=== PATIENT | female | born 1995 | race Caucasian/White ===

== ENCOUNTER 2019-08-09 10:04 | Outpatient (CLI) | payer OTHER, MEDICAID, SELFPAY ==
--- NOTE | 2019-08-09 10:11 | US_ITS ---
WS: [id number] ULTRASOUND OB COMPLETE TECHNIQUE: Complete ultrasound. CLINICAL INFORMATION: SUPERVISION OF NORMAL MULTIGRAVIDA PREGANCY, FIRST TRIMESTER COMPARISON: None. FINDINGS: Cervix measures 5.1 cm Single interuterine gestation is identified Placenta is posterior. Placenta grade 0. Placenta is low- lying with partial previa. Normal amniotic fluid volume. cardiac activity: 147 BPM. AGA: 20w1d JUAN by ultrasound: 12/26/2019 Estimated weight: 328 g. BDP: 4.7 cm = 20w1d HC: 17.9 cm = 20w3d AC: 14.7 cm = 20w0d FEMUR LENGTH: 3.2 cm = 20w0d Anatomic survey: Upper LIP not well visualized. Recommend interval follow-up for additional assessmen t. Anatomic survey is otherwise normal. Normal stomach. Kidneys and bladder are normal. Normal 3 vessel cord. Normal 3 vessel cord insertion. Normal 4 chamber heart. Normal spine. Intracranial contents are normal. Normal posterior fossa and cisterna magna. US/US OB >= 14 weeks fetus [id number] IMPRESSION: 1. Single intrauterine with visualized cardiac activity. AGA 20w1d w ith JUAN 12/26/2019. 2. Placenta is posterior. Low-lying placenta with Partial previa. Recommend th ird trimester follow-up. 3. Upper lip is not well visualized. Recommend interval follow-up and to 3 wee ne for additional assessment of upper lip and profile. Anatomic survey ot herwise normal. 4. Normal amniotic fluid volume.
== END 2019-08-09 10:05 | disposition home or self-care (01) ==
LOC: RAD 10:10
PROVIDERS: Visit Provider Family Medicine
DX: Z34.81 Encounter for supervision of other normal pregnancy, first trimester (principal); Z3A.20 20 weeks gestation of pregnancy
CPT/HCPCS: 76805

== ENCOUNTER 2019-09-19 10:52 | Outpatient (CLI) | payer OTHER, MEDICAID, SELFPAY ==
--- NOTE | 2019-09-19 10:56 | US_ITS ---
WS: [id number] ULTRASOUND OB LIMITED TECHNIQUE: Limited ultrasound examination of the fetus. CLINICAL INFORMATION: LOW LYING PLACENTA COMPARISON: None. FINDINGS: Single interuterine gestation. presentation is cephalic Placental location is posterior. Placenta grade: 0. heart rate 164 BPM. Anatomy: profile and upper lip appear normal today. Low-lying and partial previa appears resolved today. EGA by ultrasound: 26 weeks 1 day JUAN by ultrasound: December 25, 2019 US/US OB limited [id number] IMPRESSION: 1. profile and upper lip appear normal today 2. Low-lying placenta appears resolved today
== END 2019-09-19 10:53 | disposition home or self-care (01) ==
PROVIDERS: Visit Provider Family Medicine
DX: Z3A.26 26 weeks gestation of pregnancy; O44.42 Low lying placenta NOS or without hemorrhage, second trimester
CPT/HCPCS: 76815

== ENCOUNTER 2019-12-21 08:50 | Outpatient (CLI) | payer OTHER, MEDICAID, SELFPAY ==
[2019-12-21 09:12] VITALS: BP 125/76; PULSE 110
[2019-12-21 09:21] VITALS: RESP 16; TEMP 36.2
[2019-12-21 09:22] VITALS: BMI 35.7
[2019-12-21 09:42] VITALS: BP 116/70; PULSE 92
[2019-12-21 11:09] VITALS: BP 116/70; PULSE 92; RESP 16; TEMP 36.2
== END 2019-12-21 10:15 | disposition home or self-care (01) ==
LOC: OPOB 09:01 → OBGYN 10:06
PROVIDERS: Visit Provider Family Medicine
DX: O26.899 Other specified pregnancy related conditions, unspecified trimester (principal); Z3A.00 Weeks of gestation of pregnancy not specified; R10.9 Unspecified abdominal pain
CPT/HCPCS: 59025; 99211

== ENCOUNTER 2019-12-29 08:05 | Inpatient (IN) | payer OTHER, MEDICAID, SELFPAY ==
[2019-12-29] VITALS (95 sets, daily range): BP systolic 0–148; BP diastolic 0–88; PULSE 61–124; RESP 16–20; TEMP 36.6–36.9; O2SAT 80–100; BMI 35.9
[2019-12-29 08:21] LABS: Basophils # 0.1 10^3/uL (0.0-0.1); Basophils % 0.5 %; Eosinophils # 0.2 10^3/uL (0.0-0.8); Eosinophils % 1.3 %; Hematocrit 41.4 % (37.0-47.0); Hemoglobin 14.2 g/dL (11.5-15.3); Lymphocytes # 2.7 10^3/uL (0.8-4.8); Lymphocytes % 23.8 %; Mean Corpuscular HGB Conc 34.3 g/dL (30.0-36.0); Mean Corpuscular Hemoglobin 30.7 pg (28.0-34.0); Mean Corpuscular Volume 89.6 fL (81-99); Mean Platelet Volume 11.4 fL (7.4-10.4); Monocytes # 0.8 10^3/uL (0.2-0.9); Monocytes % 6.6 %; Neutrophils # 7.62 10^3/uL (1.8-7.7); Neutrophils % 67.4 %; Nucleated Red Blood Cells % 0 %; Platelet Count 171 10^3/cmm (130-400); Red Blood Count 4.62 10^6/uL (4.1-5.3); Red Cell Distribution Width 13.2 % (12.1-15.1); White Blood Count 11.3 10^3/uL (4.0-10.0)
[2019-12-29] MEDS: oxytocin 30 UNIT/500 ML BAG IV (16:41)
[2019-12-29] MEDS: dextrose 5%-lactated ringers 1,000 ML 125 ML IV (16:42)
[2019-12-29] MEDS: lactated ringers 1,000 ML 999 ML IV (20:54)
[2019-12-29] MEDS: lactated ringers 1,000 ML 125 ML IV (21:47)
--- NOTE | 2019-12-29 22:20 | P.ANESASSM_ITS ---
Pre-Anesthetic Assessment Pre-Anesthetic Assessment: Height/Weight: Height 1.6 m Weight 92.079 kg Temp Pulse Resp BP Pulse Ox 97.8 F 86 20 H 130/61 97 12/29/19 18:20 12/29/19 22:17 12/29/19 18:20 12/29/19 22:17 12/29/19 22:09 Preop Diagnosis: IUP Proposed Procedure: Lumbar Labor Epidural Was Beta Karen taken within 24 hours: N/A Exam: Pre-Anes Outpt Exam: alert, oriented x 3, clear to auscultation bilaterally and regular rate & rhythm History/ROS: No significant history except as noted and No significant complaints Pulmonary: Pulmonary: None reported CV/HEM: CV/HEM: None reported : : None reported Hepatic: Hepatic: None reported GI: GI: GERD Metabolic: Metabolic: None reported Musc/skel: Musc/skel: None reported Neuropsych: Neuropsych: None reported Anesthetic Plan: ASA status: 2 Anesthesia: Regional (specify below) (epidural) Meds/Allergies Current Medications: Current Medications Generic Name Dose Route Start Last Admin Trade Name Freq PRN Reason Stop Dose Admin Dextrose/Lactated Ringer's 1,000 mls @ 125 m ls/hr 12/29/19 08:15 12/29/19 20:52 Dextrose 5%-Lact ated Ringers IV 0 mls/hr .Q8H ALINA Infusion Oxytocin 30 unit in 500 ml s @ 1 mls/hr 12/29/19 15:45 12/29/19 20:30 Pitocin IV 15 milliunit/min .Q24H ALINA 15 mls/hr Titration Protocol 1 MILLIUNIT/MIN Lactated Ringer's 1,000 mls @ 999 m ls/hr 12/29/19 20:47 12/29/19 20:54 Lactated Ringers IV 999 mls/hr .Q1H1M PRN Administration See label comment s PFSH Anesthesia Female Reproductive History: Date of last menstrual period: 03/20/19 : 2 Data Anesthesia CBC & Chem 7: 12/29/19 07:50 Other Labs: Laboratory Results - last 48 hr 12/29/19 07:50 WBC 11.3 H RBC 4.62 Hgb 14.2 Hct 41.4 MCV 89.6 MCH 30.7 MCHC 34.3 RDW 13.2 Plt Count 171 MPV 11.4 H Neut % (Auto) 67.4 Lymph % (Auto) 23.8 [place] % (Auto) 6.6 Eos % (Auto) 1.3 Baso % (Auto) 0.5 Neut # (Auto) 7.62 Lymph # (Auto) 2.7 [place] # (Auto) 0.8 Eos # (Auto) 0.2 Baso # (Auto) 0.1 Nucleated RBC % (auto) 0 Nucleated RBCs # 0.0 Cardiac Studies: No Data to Display Anesthesia Procedures Epidural: Time Out Performed: Yes Consents Signed: Procedure Consent Consent: from patient, risks and benefits reviewed and patient agrees to proceed Lumbar Level: L3-L4 Epidural position: sitting Epidural procedure: sterile prep of area, 1% lidocaine to numb the area (5), 18 g needle, negative for paresthesia passed, neg for paresthesia, test dose given, 1.5% xylocaine 1:200k epi (5), 0.2% Ropivacaine bolus ml (5), placed PCEA (5cc q10min x 3), no systemic response, sterile dressing applied, L.U.D. no apparent complications and 0.2% Ropiavacaine @ mls/hr (12) Additional Comments: Called to OB for epidural placement, pt evaluated and assessed for placement and explained procedure. Labs reviewed. Pt agrees to proceed. placed to 5cm in space and bonny erated well. Bolused with epidural pump and VSS throughout per nursing chart. Last BP 117/60. Pain much improved.
[2019-12-30] VITALS (50 sets, daily range): BP systolic 0–136; BP diastolic 0–76; PULSE 68–122; RESP 16–18; TEMP 36.7–37; O2SAT 96–97
[2019-12-30] MEDS: alum-mag-hydroxide-sime 30 mL UDC PO (01:42)
[2019-12-30] MEDS: ondansetron 2 mg/ML SDV 2 mL 4 MG IVP (04:51)
--- NOTE | 2019-12-30 06:05 | P.PCNOB_ITS ---
Delivery Note: Date of delivery: December 30, 2019 Pre-Delivery Course: The patient began care at [facility]. She transferred to [facility] at approximately 32 weeks gestation. She was blood type AB+ antibody negative, GC chlamydia negative, HIV nonreactive, hepatitis B nonreactive, hep C nonreactive RPR nonreactive, glucose tolerance test 107, GBS negative, COVID screen negative. Delivery: This is a 24-year-old G2, P1 at 40 weeks 4 days gestation who was admitted for postdate induction. She was initially admitted in the fitter's assistant hours of 12/29/2019 but due to the busyness of the labor and delivery unit her induction was held off until late afternoon. She was started on Pitocin around 1700, her cervix was favorable. She received an epidural for pain management. She had spontaneous rupture membranes with clear fluid at approximately 0200. The infant had a deceleration into the 80s and 90s when she became complete but it recovered with positioning changes. She had a normal spontaneous vaginal delivery of a viable male infant weight [id number] , Apgars 4 and 9 over an intact perineum. The had initial cry and good tone and was suctioned at delivery and placed on the mother's chest. The then went apneic and was taken over to the warmer. Cord blood was obtained. Placenta was delivered grossly intact and normal to inspection. There were no lacerations. Mother was doing well after delivery. was receiving CPAP. A&P Assessment and plan (1) Post-term , 40-42 weeks of gestation: Status: Acute (2) Normal spontaneous vaginal delivery: Status: Acute Coding Level of Care Code Acute Industrial Gas Fitter Helper for Chg Fwd Diagnoses Post-term , 40-42 weeks of gestation O48.0 Normal spontaneous vaginal delivery O80
[2019-12-30] MEDS: docusate sodium 100 mg Capsule PO (09:56)
[2019-12-30] MEDS: ibuprofen 800 mg tablet PO (09:56)
[2019-12-30] MEDS: prenatal vitamin Capsule 1 CAP PO (09:56)
[2019-12-30 19:43] LABS: Hematocrit 33.1 % (37.0-47.0); Hemoglobin 11.1 g/dL (11.5-15.3); Mean Corpuscular HGB Conc 33.5 g/dL (30.0-36.0); Mean Corpuscular Hemoglobin 30.7 pg (28.0-34.0); Mean Corpuscular Volume 91.4 fL (81-99); Mean Platelet Volume 11.5 fL (7.4-10.4); Platelet Count 150 10^3/cmm (130-400); Red Blood Count 3.62 10^6/uL (4.1-5.3); Red Cell Distribution Width 13.2 % (12.1-15.1); White Blood Count 10.2 10^3/uL (4.0-10.0)
[2019-12-31 04:20] VITALS: BP 104/61; PULSE 89; RESP 14; TEMP 36.8; O2SAT 97
--- NOTE | 2019-12-31 07:55 | ANE.PACU2 ---
Inpatient post-anesthesia follow up: Airway intact: Yes Vital signs: Temperature 98.2 F Pulse Rate 89 Respiratory Rate 14 Blood Pressure 104/61 Pulse Oximetry 97 Oxygen Delivery Me thod Room Air Oxygen Flow Rate Fraction of Inspir ed Oxygen Hydration adequate: Yes Nausea and vomiting: No Pain level: 1 Mental status: Baseline Additional Comments: no headaches, no weakness/numbness in legs, urinating without grayson. NO signs of infection at epidural site
[2019-12-31 10:44] VITALS: BP 92/61; PULSE 71; RESP 16; TEMP 36.5
[2019-12-31 16:46] VITALS: BP 108/63; PULSE 78; RESP 18; TEMP 36.4
--- NOTE | 2019-12-31 17:30 | P.DS_ITS ---
Discharge Providers ENVIRONMENTAL WEB CRAWLER Date of Admission: 12/29/19 08:05 Date of Discharge: 12/31/19 Attending Provider at Admission: Treva Samuel MD Attending Provider at Discharge: Treva Samuel MD Diagnoses at Discharge Discharge Diagnosis (1) Post-term , 40-42 weeks of gestation: Status: Acute (2) Normal spontaneous vaginal delivery: Status: Acute Reason for Visit Reason for Visit: IOL Hospital Course Hospital Course: This is a 24-year-old G2 now P2 who was admitted for postdate induction. She had a normal spontaneous vaginal delivery of a viable male . Mother did well after delivery. She was ambulating, tolerating a regular diet, had decreased vaginal bleeding and was requesting discharge home Information Peripartum Data: Infant Delivery Method: Vaginal Physical Exam HENMT: COMMON NORMALS: normocephalic HEAD & SCALP: normocephalic Chest: COMMONS NORMALS: normal inspection of the chest Resp: COMMON NORMALS: normal respiratory effort, No use of accessory muscles and clear to auscultation bilaterally AUSCULTATION: clear to auscultation bilaterally Cardio: COMMON NORMALS: regular rate and regular rhythm RATE: regular rate RHYTHM: regular rhythm GI: COMMON NORMALS: Soft to palpation (Fundus firm U- 2); negative for No hepatosplenomegaly present PALPATION: Yes Soft to palpation (Fundus firm U- 2), No Tenderness to palpation present (GI), No Guarding due to palpation present (GI) and No No hepatosplenomegaly present Extremity: GENERAL: No calf tenderness and Yes edema Urinary Catheter Management^: Perez: Cath Placed During This Visit: yes Urinary Catheter Date of Insertion: 12/29/19 Urinary Catheter Time of Insertion: 22:54 Discharge Data Data Completed and Pending: Labs from last 24 hours 12/30/19 19:32 WBC 10.2 H RBC 3.62 L Hgb 11.1 L Hct 33.1 L MCV 91.4 MCH 30.7 MCHC 33.5 RDW 13.2 Plt Count 150 MPV 11.5 H Vitals: This is a 24-year-old G2 now P2Last Vital Signs Temp 97.6 F 12/31/19 16:46 Pulse 78 12/31/19 16:46 Resp 18 12/31/19 16:46 BP 108/63 12/31/19 16:46 Pulse Ox 97 12/31/19 04:20 Discharge Plan Discharge Patient Disposition: Home Condition: Stable Prescriptions: Continued RF: 0 Discharge Orders: Discharge Order (Routine); Ordered 12/31/19 Ordered By: Treva Samuel Referrals: Treva Samuel MD [Family Provider] - 1 month Discharge Diet: Usual diet Discharge Activity: Limit activity as instructed Patient Instructions: Bleeding (DC), OB Discharge Report, OB Food/Drug Interaction Guide, OB Home Care, OB Proud Parent Packet, OB Vaginal Deliveries Discharge Attestations ENVIRONMENTAL WEB CRAWLER Time Spent in Discharge Care*: less than 30 min Coding Level of Care Code Acute Product Safety And Standards Engineer for Chg Fwd Diagnoses Post-term , 40-42 weeks of gestation O48.0 Normal spontaneous vaginal delivery O80
[2019-12-31 21:05] VITALS: BP 105/65; PULSE 79; RESP 16; TEMP 36.9; O2SAT 96
[2020-01-01 04:09] VITALS: BP 105/65; PULSE 79; RESP 16; TEMP 36.9; O2SAT 96
== END 2019-12-31 21:10 | disposition home or self-care (01) | DRG 807 ==
LOC: OPOB 08:25 → OBGYN 08:25
PROVIDERS: Admitting Provider Family Medicine; Family Provider Family Medicine; Visit Provider Family Medicine
DX: O48.0 Post-term pregnancy (principal); Z37.0 Single live birth; Z3A.40 40 weeks gestation of pregnancy; Z87.891 Personal history of nicotine dependence; O76 Abnormality in fetal heart rate and rhythm complicating labor and delivery
CPT/HCPCS: 12345; 36415; 51702; 59025; 59409; 85025; 85027; 96374; 96375; 98960; 99211; J2405; J2795

== ENCOUNTER 2022-02-22 23:11 | Emergency (ER) | payer BC, MEDICAID, SELFPAY ==
[2022-02-22 23:27] VITALS: BP 131/77; PULSE 106; RESP 18; TEMP 36.8; O2SAT 100; BMI 33.6
--- NOTE | 2022-02-22 23:50 | USR_ITS ---
PROCEDURE INFORMATION: Exam: US Abdomen, Limited; Right Upper Quadrant Exam date and time: 02/23/2022 12:05 AM Age: 27 years old Clinical indication: Abdominal pain; Patient HX: Ruq pain n+v x 1 week TECHNIQUE: Imaging protocol: Real time ultrasound of the abdomen with image documentation. Limited exam focused on the right upper quadrant. COMPARISON: US OB limited [id number] 09/19/2019 10:55 AM FINDINGS: Liver: Normal. No masses. Gallbladder: Cholelithiasis and a positive Samaniego's sign, gallbladder wall is mildly prominent at 3.2 mm, findings may potentially reflect an early cholecystitis, nuclear medicine HIDA scan could further evaluate this. Biliary ducts: Normal. No stones. No dilation. Pancreas: Visualized pancreas is unremarkable. Right kidney: Normal. No mass. No hydronephrosis. US/US gall bladder [id number] IMPRESSION: Cholelithiasis and a positive Samaniego's sign, gallbladder wall is mildly prominent at 3.2 mm, findings may potentially reflect an early cholecystitis, nuclear medicine HIDA scan could further evaluate this.
--- NOTE | 2022-02-22 23:51 | ED_ITS ---
HPI - Abdominal Pain General: Chief Complaint: Abdominal Pain Stated Complaint: abdomen pain Time Seen by Provider: 02/22/22 23:36 Source: patient Mode of arrival: ambulatory Limitations: no limitations History of Present Illness: 27-year-old female who states she has been having intermittent abdominal pains for the last week states pains got much worse this evening states pain started at 7 is in her epigastric region and right upper quadrant. She denies any lower abdominal pain states pain is currently 7 out of 10 had some nausea vomiting with the pain no history of any abdominal surgeries she denies any fever denies any dysuria. Denies any radiation of the pain. Associated Symptoms: Reports nausea and vomiting; Denies chills, dysuria and fever(s) Related Data: Date of Last Menstrual Period: 02/13/22 Review of Systems Const: Denies: fever(s), chills, body aches or change in appetite Eyes: Denies: blurry vision or eye discomfort ENMT: Denies: throat pain or dental pain Card: Denies: chest pain Resp: Denies: dyspnea GI: Reports: abdominal pain, nausea and vomiting : Denies: dysuria Musc: Denies: neck pain or back pain Skin/Breast: Denies: rash Neuro: Denies: headache(s) Psych: Denies: depression [place]/Lymph: Denies: easy bruising All/Imm: Denies: urticaria PFSH ED PFSH: Medical History Allergic rhinitis due to allergen Former smoker Social History Smoking and tobacco status: current every day smoker Female Reproductive History: Date of last menstrual period: 02/13/22 Physical Exam Const: COMMON NORMALS: no acute distress, patient oriented x3 and healthy appearing HENMT: COMMON NORMALS: normocephalic and atraumatic HEAD & SCALP: normocephalic and atraumatic Eye: COMMON NORMALS: Equal, round and reactive pupils present and EOMs intact bilaterally PUPIL: Yes Equal, round and reactive pupils present Neck/C-Spine: COMMON NORMALS: full ROM and supple Chest: COMMONS NORMALS: normal inspection of the chest and normal palpation of entire chest wall Resp: COMMON NORMALS: normal respiratory effort, No retractions, No use of accessory muscles and clear to auscultation bilaterally AUSCULTATION: clear to auscultation bilaterally Cardio: COMMON NORMALS: regular rate, regular rhythm and No murmurs present (Cardio) RATE: regular rate RHYTHM: regular rhythm GI: COMMON NORMALS: Normal to inspection, nondistended, normoactive bowel sounds present, Soft to palpation, non-tender and no masses PALPATION: Yes Soft to palpation Extremity: COMMON NORMALS: normal to inspection and full ROM Neuro: COMMON NORMALS: patient oriented x3, moves all extremities and no focal motor deficits Psych: COMMON NORMALS: mental status grossly normal, Normal thought process present and cooperative THOUGHT PROCESS: Normal thought process present Skin: COMMON NORMALS: no rashes or lesions noted and no wounds GENERAL SKIN EXAM: no rashes or lesions noted Course Vital Signs: Vital signs: Vital Signs Temperature 98.2 F 02/22/22 23:27 Pulse Rate 85 02/23/22 01:11 Respiratory Rate 16 02/23/22 01:11 Blood Pressure 122/70 02/23/22 01:11 Pulse Oximetry 100 02/23/22 01:11 Oxygen Delivery Me thod 02/22/22 23:27 MDM - Abdominal Pain Medical Decision Making Patient presents with abdominal pain her ultrasound here did show gallstones with possible slight wall thickening her pain here is resolved her exam at [facility] is benign her white count is normal no signs of any severe infection I did offer admission for possible early cholecystitis she states she did not follow- up with surgeon outpatient we will get her follow-up started on antibiotics on pain meds for pain return she is return immediately she understands agrees to plan. Lab Data 02/22/22 23:50 02/22/22 23:50 Labs/Radiology: Radiology Impressions Gallbladder Ultrasound 02/22/22 23:50 IMPRESSION: Cholelithiasis and a positive Samaniego's sign, gallbladder wall is mildly prominent at 3.2 mm, findings may potentially reflect an early cholecystitis, nuclear medicine HIDA scan could further evaluate this. Laboratory Results WBC 9.4 10^3/uL (4.0-10.0) 02/22/22 23:50 RBC 4.77 10^6/uL (4.1-5.3) 02/22/22 23:50 Hgb 14.7 g/dL (11.5-15.3) 02/22/22 23:50 Hct 43.8 % (37.0-47.0) 02/22/22 23:50 MCV 91.8 fl (81-99) 02/22/22 23:50 MCH 30.8 pg (28.0-34.0) 02/22/22 23:50 MCHC 33.6 g/dL (30.0-36.0) 02/22/22 23:50 RDW 12.0 % (12.1-15.1) L 02/22/22 23:50 Plt Count 222 10^3/cmm (130-400) 02/22/22 23:50 MPV 10.4 fL (7.4-10.4) 02/22/22 23:50 Neut % (Auto) 41.6 % 02/22/22 23:50 Lymph % (Auto) 44.5 % 02/22/22 23:50 [place] % (Auto) 8.3 % 02/22/22 23:50 Eos % (Auto) 4.9 % 02/22/22 23:50 Baso % (Auto) 0.5 % 02/22/22 23:50 Neut # (Auto) 3.92 10^3/uL (1.8-7.7) 02/22/22 23:50 Lymph # (Auto) 4.2 10^3/uL (0.8-4.8) 02/22/22 23:50 [place] # (Auto) 0.8 10^3/uL (0.2-0.9) 02/22/22 23:50 Eos # (Auto) 0.5 10^3/uL (0.0-0.8) 02/22/22 23:50 Baso # (Auto) 0.1 10^3/uL (0.0-0.1) 02/22/22 23:50 Nucleated RBC % (auto) 0 % 02/22/22 23:50 Nucleated RBCs # 0.0 /100WBC 02/22/22 23:50 Sodium 139 mmol/L (136-145) 02/22/22 23:50 Potassium 4.1 mmol/L (3.5-5.1) 02/22/22 23:50 Chloride 104 mmol/L (98-107) 02/22/22 23:50 Carbon Dioxide 27 mmol/L (22-29) 02/22/22 23:50 Anion Gap 12.1 (5-19) 02/22/22 23:50 BUN 10 mg/dL (6-20) 02/22/22 23:50 Creatinine 0.7 mg/dL (0.5-0.9) 02/22/22 23:50 GFR Calculation 102.0 mL/min (90-130) 02/22/22 23:50 Glucose 111 mg/dL (65-115) 02/22/22 23:50 Calculated Osmolality 288 mOsm/kg (285-295) 02/22/22 23:50 Calcium 10.0 mg/dL (8.5-10.5) 02/22/22 23:50 Total Bilirubin 0.2 mg/dL (0.15-1.2) 02/22/22 23:50 AST 13 U/L (0-32) 02/22/22 23:50 ALT 13 U/L (0-33) 02/22/22 23:50 Alkaline Phosphatase 70 U/L (35-105) 02/22/22 23:50 Total Protein 7.3 g/dL (6.6-8.7) 02/22/22 23:50 Albumin 4.2 g/dL (3.5-5.2) 02/22/22 23:50 Globulin 3.1 g/dL (1.3-4.6) 02/22/22 23:50 Lipase 30 U/L (13-60) 02/22/22 23:50 HCG, Qual Negative (Negative) 02/22/22 23:50 Discharge Plan Discharge Patient Disposition: Home Clinical Impression: Abdominal pain, Cholelithiases Condition: Stable Prescriptions: New hydrocodone-acetaminophen 5-325 mg tablet 1 tab PO Q6H PRN (Reason: pain) Qty: 14 0RF ondansetron 4 mg tablet,disintegrating 4 mg PO Q6H PRN (Reason: nausea and vomiting) Qty: 14 0RF levofloxacin 750 mg tablet 750 mg PO DAILY 5 Days Qty: 5 0RF No Action escitalopram oxalate [Lexapro] 10 mg tablet 10 mg PO DAILY loratadine 10 mg tablet 10 mg PO DAILY PRN (Reason: allergy symptoms) Qty: 30 3RF fluticasone propionate 50 mcg/actuation spray,suspension 2 spray intranasal BID PRN (Reason: allergy symptoms) Qty: 16 3RF Rx Instructions: administer into each nostril diphenhydramine HCl 25 mg tablet 25 mg PO .hs PRN (Reason: allergy symptoms) Qty: 30 1RF Discharge Orders: Discharge ED (Routine); Ordered 02/23/22 Ordered By: Kayden Ibrahim Referrals: Treva Samuel MD [Primary Care Provider] - Sylvester Glover DO [Physician] - 1-3 days Discharge Diet: Advance as tolerated Discharge Activity: Resume usual activity Patient Instructions: Biliary Colic (ED), Gallstones (ED), Opioid Safety, Pain Management Coding Level of Care Code ED Director Of Graduate Admissions for Chg Fwd Exam Comprehensive
[2022-02-22 23:57] LABS: Basophils # 0.1 10^3/uL (0.0-0.1); Basophils % 0.5 %; Eosinophils # 0.5 10^3/uL (0.0-0.8); Eosinophils % 4.9 %; Hematocrit 43.8 % (37.0-47.0); Hemoglobin 14.7 g/dL (11.5-15.3); Lymphocytes # 4.2 10^3/uL (0.8-4.8); Lymphocytes % 44.5 %; Mean Corpuscular HGB Conc 33.6 g/dL (30.0-36.0); Mean Corpuscular Hemoglobin 30.8 pg (28.0-34.0); Mean Corpuscular Volume 91.8 fl (81-99); Mean Platelet Volume 10.4 fL (7.4-10.4); Monocytes # 0.8 10^3/uL (0.2-0.9); Monocytes % 8.3 %; Neutrophils # 3.92 10^3/uL (1.8-7.7); Neutrophils % 41.6 %; Nucleated Red Blood Cells % 0 %; Platelet Count 222 10^3/cmm (130-400); Red Blood Count 4.77 10^6/uL (4.1-5.3); White Blood Count 9.4 10^3/uL (4.0-10.0)
[2022-02-23 00:26] LABS: Alanine Aminotransferase 13 U/L (0-33); Albumin Level 4.2 g/dL (3.5-5.2); Alkaline Phosphatase 70 U/L (35-105); Anion Gap 12.1 (5-19); Aspartate Amino Transferase 13 U/L (0-32); Blood Urea Nitrogen 10 mg/dL (6-20); Carbon Dioxide 27 mmol/L (22-29); Chloride 104 mmol/L (98-107); Globulin 3.1 g/dL (1.3-4.6); Glucose 111 mg/dL (65-115); Lipase 30 U/L (13-60); Osmolality Calculated 288 mOsm/kg (285-295); Potassium 4.1 mmol/L (3.5-5.1); Sodium 139 mmol/L (136-145); Total Bilirubin 0.2 mg/dL (0.15-1.2); Total Protein 7.3 g/dL (6.6-8.7)
[2022-02-23 00:35] LABS: HCG, Serum Qual Negative (Negative)
[2022-02-23] MEDS: ondansetron 2 mg/ML SDV 2 mL 4 MG IVP (00:41)
[2022-02-23] MEDS: morphine 4 mg/mL SDV 1 mL IVP (00:41)
[2022-02-23] MEDS: sodium chloride 0.9% 1,000 ML 999 ML IV (00:41)
[2022-02-23 01:11] VITALS: BP 122/70; PULSE 85; RESP 16; O2SAT 100
[2022-02-23] MEDS: levoFLOXacin 750 mg Tablet PO (01:22)
--- NOTE | 2022-02-23 12:23 | DCPLANNER ---
Addendum entered by Michelle Leigh 03/25/22 10:08: Patient had a follow up appointment scheduled with general surgery - patient did attend appointment. Addendum entered by Michelle Leigh 02/24/22 12:03: Patient has a follow up appointment scheduled for Tuesday, March 15, 2022 at 4:[address] Glover at general surgery. Clinic will call patient with appointment information. Original Note: financial institution branch manager had message to schedule a follow up appointment for patient with general surgery. financial institution branch manager sent patients information to the front office staff at general surgery. Patients information will be printed and reviewed. Clinic will call patient with appointment information.
== END 2022-02-23 01:30 | disposition home or self-care (01) ==
PROVIDERS: Emergency Provider Emergency Medicine; PCP Family Medicine
DX: K80.20 Calculus of gallbladder without cholecystitis without obstruction (principal); F17.210 Nicotine dependence, cigarettes, uncomplicated
CPT/HCPCS: 76705; 80053; 83690; 84703; 85025; 96361; 96374; 96375; 99285; J2270; J2405; J7030

== ENCOUNTER 2022-03-07 09:31 | Day surgery (SDC) | payer BC, MEDICAID, SELFPAY ==
[2022-03-07] VITALS (22 sets, daily range): BP systolic 84–120; BP diastolic 48–73; PULSE 57–97; RESP 16–18; TEMP 36.3–37.6; O2SAT 93–100
--- NOTE | 2022-03-07 09:40 | W.PM.OPSUD ---
Surgery/Procedure H&P Update DATE OF PROCEDURE: March 07, 2022 DATE H&P PERFORMED: 03/01/22 PREOP DIAGNOSIS: Symptomatic Cholelithiasis PLANNED PROCEDURE: Operation Date: 03/07/22 11:05 Proposed Procedures [email or web address] sanders [id number] ,K80.20(Not Applicable) - Sylvester Glover DO
[2022-03-07 09:53] LABS: OR HCG Qualitative Urine Negative (Negative)
[2022-03-07] MEDS: ceFAZolin 2,000 MG in sodium chloride 0.9% (plus) 50 ML 100 MG IV (10:04)
[2022-03-07] MEDS: sodium chloride 0.9% 1,000 ML 30 ML IV (10:05)
--- NOTE | 2022-03-07 10:06 | ANES.PREANE2 ---
Pre-Anesthetic Assessment Height/Weight: Height 1.6 m Weight 89.358 kg Temp Pulse Resp BP Pulse Ox O2 Del Method 99.7 F H 97 16 120/73 99 03/07/22 09:49 03/07/22 09:49 03/07/22 09:49 03/07/22 09:49 03/07/22 09:49 03/07/22 09:54 Preop Diagnosis: Symptomatic Cholelithiasis Operation Date: 03/07/22 11:05 Proposed Procedures p lap marilyn [id number] ,K80.20(Not Applicable) - Sylvester Glover DO Familial anesthetic complications: none Was Beta Karen taken within 24 hours: N/A Was Clonidine taken within 24 hours: N/A Last intake: Intake Last Liquid Date 03/06/22 Last Liquid Time 11:30 Last Solid Date 03/06/22 Last Solid Time 21:00 Social No alcohol and No tobacco Exam alert, oriented x 3, clear to auscultation bilaterally and regular rate & rhythm Airway Submandibular: within normal limits Cervical ROM: within normal limits Mallampati: Class II Dentition: full Metabolic Morbid Obesity Neuropsych Anxiety Anesthetic Plan ASA status: 2 Anesthesia: General Medications/Allergies Home Medications Medication Instructions Recorded Confirmed Last Taken Type escitalopram oxalate 10 mg tablet 10 mg PO DAILY 08/20/21 03/04/22 03/06/22 History (Lexapro) loratadine 10 mg tablet 10 mg PO DAILY PRN allergy 08/20/21 03/04/22 02/17/22 Rx symptoms #30 tabs ondansetron 4 mg disintegrating 4 mg PO Q6H PRN nausea and 02/23/22 03/04/22 02/24/22 Rx tablet vomiting #14 tabs Allergies Allergy/AdvReac Type Severity Reaction Status Date / Time codeine Allergy Intermediate ALGY-Rash Verified 03/04/22 13:01 Current Medications Generic Name Dose Route Start Last Admin Trade Name Freq PRN Reason Stop Dose Admin Sodium Chloride 1,000 mls @ 30 mls/hr 03/07/22 09:45 03/07/22 10:05 Sodium Chloride 0.9% IV 03/08/22 09:44 30 mls/hr .Q24H ALINA Administration PFSH Anesthesia Medical History Allergic rhinitis due to allergen Former smoker Social History Smoking and tobacco status: current every day smoker Female Reproductive History Date of last menstrual period: 03/03/22 Data Anesthesia Cardiac Studies: No Data to Display
--- NOTE | 2022-03-07 10:33 | XR_ITS ---
WS: [id number] Exam: XR chest 1V portable [id number] Date/Time of Exam: 03/07/2022 10:33 AM Reason For Exam: intra-op Findings: The lungs are clear and fully expanded. Costophrenic angles are sharp. No infiltrates. Bronchovascula r relief appears normal. Cardiac silhouette is unremarkable. Bony elements are intact. XR/XR chest 1V portable [id number] IMPRESSION: Unremarkable chest radiograph.
--- NOTE | 2022-03-07 10:40 | P.OP_ITS ---
Operative Report Date of procedure: March 07, 2022 Pre-op diagnosis: Preop Diagnosis Symptomatic Cholelithiasis Post-op diagnosis: same Procedure done: Laparoscopic cholecystectomy Specimens removed/disposition: Gallbladder Surgeon: Dr. Sylvester Glover DO Anesthesia: General Estimated blood loss (mL): 5 Complications: None apparent Brief History: This is a very pleasant 27-year-old female who was diagnosed with symptomatic cholelithiasis. Laparoscopic cholecystectomy was indicated. The risks and benefits were explained and documented. Procedure: Patient was wheeled into the operative room and placed on the OR table in a supine position. Abdomen was inspected prepped and draped in usual sterile fashion. Time-out was performed and all present were in agreement. A 15 blade scalp was used to make a stab incision in the left upper quadrant and intra- abdominal insufflation was achieved using a Veress needle. After localizing the tissue incisions were made and a 5 millimeter trocar was placed into the umbilicus as well as 2 in the right upper quadrant. The 5 mm trocar in the midclavicular position was inadvertently placed between the 12th and 11th rib. I backed out and through the same skin incision placed at below the 12th rib and into the abdomen. A 12 millimeter trocar was placed in the epigastrium. Gallbladder was grasped and elevated. The triangle of Calot was carefully dissected using blunt dissection and electrocautery until the triangle of Calot clearly identified. The cystic duct was clipped proximally and double clipped distally. The duct was then ligated proximally. The cystic artery was doubly clipped and ligated. The gallbladder was then removed from the liver bed using electrocautery. The gallbladder was removed from the abdomen using an Endo- Catch bag through the epigastric incision. The liver bed was inspected and no bleeding was seen. The abdomen was irrigated and suctioned. All ports removed. Skin was washed and dried. Incisions were closed with 3-0 and 4-O Vicryl in a subcuticular interrupted fashion. Skin glue was applied. Patient tolerated the procedure well. A Postop chest xray was within normal limitis.
[2022-03-07] MEDS: fentaNYL 50 mcg/mL INJ 2mL IVP ×2 (11:31→11:55)
--- NOTE | 2022-03-07 12:37 | SUR.PHASEI ---
patient out of phase 1 at 1210 and moved to [facility]. waiting on drLilo to see chest xray before transferring to phase 2 recovery. patient alert and oriented x4,vitals stable, no airway issues, sitting up.
--- NOTE | 2022-03-07 15:50 | ANE.PACU2 ---
Inpatient post-anesthesia follow up: Airway intact: Yes Vital signs: Temperature 98.9 F Pulse Rate 90 Respiratory Rate 16 Blood Pressure 115/68 Pulse Oximetry 100 Oxygen Delivery Me thod Room Air Oxygen Flow Rate 6 Fraction of Inspir ed Oxygen Hydration adequate: Yes Nausea and vomiting: No Pain level: 3 Mental status: Baseline
== END 2022-03-07 14:00 | disposition home or self-care (01) ==
PROVIDERS: Anesthesiology; PCP Family Medicine; Visit Provider Surgery
PROC: 0FT44ZZ Resection of Gallbladder, Percutaneous Endoscopic Approach (ICD-10-PCS; CPT 47562; principal; 2022-03-07 10:55)
DX: K80.10 Calculus of gallbladder with chronic cholecystitis without obstruction (principal); E66.01 Morbid (severe) obesity due to excess calories; Z68.34 Body mass index [BMI] 34.0-34.9, adult; F17.200 Nicotine dependence, unspecified, uncomplicated
CPT/HCPCS: 47562; 71045; 81025; 84703; 88304; J0690; J1100; J1170; J1200; J2250; J2370; J2405; J2704; J2710; J3010; J3490; J7030

== ENCOUNTER 2022-08-16 22:30 | Emergency (ER) | payer BC, MEDICAID, SELFPAY ==
[2022-08-16 22:51] VITALS: BP 100/61; PULSE 80; RESP 14; TEMP 36.7; O2SAT 98; BMI 35.4
--- NOTE | 2022-08-17 00:22 | W.ED.GENADLT ---
HPI - General Adult General: Chief complaint: General Medical Stated complaint: sore throat, blisters, fever Time Seen by Provider: 08/16/22 23:51 History of Present Illness: Patient comes in today for complaints of sore throat. Patient's was diagnosed with strep 2 or 3 days ago. Patient started having symptoms tonight. Patient's son is also ill. Review of Systems ENMT: Reports: throat pain PFSH ED PFSH: Medical History Allergic rhinitis due to allergen Former smoker Surgical History (Updated 03/22/22 @ 08:35 by Sylvester Glover DO) Hx laparoscopic cholecystectomy 03/07/22 Social History Smoking and tobacco status: current every day smoker Physical Exam Const: COMMON NORMALS: alert HENMT: COMMON NORMALS: normocephalic HEAD & SCALP: normocephalic THROAT: posterior oropharynx abnormal (Erythema and tonsillar enlargement) Neck/C-Spine: COMMON NORMALS: full ROM and no meningeal signs Resp: COMMON NORMALS: normal respiratory effort Cardio: COMMON NORMALS: regular rate RATE: regular rate Extremity: COMMON NORMALS: normal to inspection and no pedal edema Neuro: SENSORIUM/ORIENTATION: Yes alert MENINGEAL SIGNS: Yes no meningeal signs Skin: COMMON NORMALS: turgor normal GENERAL SKIN EXAM: turgor normal Course Vital Signs: Vital signs: Vital Signs Temperature 98.0 F 08/16/22 22:51 Pulse Rate 75 08/17/22 00:43 Respiratory Rate 18 08/17/22 00:43 Blood Pressure 113/74 08/17/22 00:43 Pulse Oximetry 96 08/17/22 00:43 Oxygen Delivery Me thod Room Air 08/16/22 22:51 MDM - General Adult Medical Decision Making 27-year-old female comes in today with sore throat starting this evening. On exam patient has erythema and tonsillar enlargement to the posterior pharynx. Patient does have positive exposure to strep. Differential diagnosis includes viral pharyngitis, strep pharyngitis, other viral syndrome. Patient was started on Augmentin 875 twice daily for 7 days. Patient reports understanding of care plan and need for follow-up or return to the ER. Discharge Plan Discharge Patient Disposition: Home Clinical Impression: Acute streptococcal pharyngitis Condition: Stable Prescriptions: New amoxicillin-pot clavulanate 875-125 mg tablet 1 tab PO BID Qty: 14 0RF No Action escitalopram oxalate [Lexapro] 10 mg tablet 10 mg PO DAILY loratadine 10 mg tablet 10 mg PO DAILY PRN (Reason: allergy symptoms) Qty: 30 3RF ondansetron 4 mg tablet,disintegrating 4 mg PO Q6H PRN (Reason: nausea and vomiting) Qty: 14 0RF DOK 100 mg capsule 100 mg PO BID Qty: 20 0RF Discharge Orders: Discharge ED (Routine); Ordered 08/17/22 Ordered By: Patrick London Referrals: Treva Samuel MD [Primary Care Provider] - Discharge Diet: Usual diet Discharge Activity: Increase activity as tolerated Patient Instructions: Strep Throat (ED) Activity Restrictions/Additional Instructions: Encourage plenty of fluids. Activity as tolerated. Use acetaminophen and ibuprofen for pain and discomfort. Follow-up as needed. 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
[2022-08-17] MEDS: amoxicillin-clav 875-125 mg Tablet 1 TAB PO (00:34)
[2022-08-17 00:43] VITALS: BP 113/74; PULSE 75; RESP 18; O2SAT 96
== END 2022-08-17 00:44 | disposition home or self-care (01) ==
PROVIDERS: Emergency Provider Nurse Practitioner Family; PCP Family Medicine
DX: J02.0 Streptococcal pharyngitis (principal)
CPT/HCPCS: 99283

== ENCOUNTER 2024-06-10 12:08 | Emergency (ER) | payer SELFPAY ==
[2024-06-10 12:12] VITALS: BP 127/70; PULSE 110; TEMP 36.7; O2SAT 98; BMI 38.0
[2024-06-10 13:47] VITALS: BP 139/86; PULSE 83; O2SAT 97
--- NOTE | 2024-06-10 13:49 | CTR_ITS ---
PROCEDURE INFORMATION: Exam: CT Head Without Contrast Exam date and time: 06/10/2024 2:14 PM Age: 29 years old Clinical indication: Pain; Headache not specified; Additional info: LEA TECHNIQUE: Imaging protocol: Computed tomography of the head without contrast. Axial, coronal and sagittal reformatted images were created and reviewed. Radiation optimization: All CT scans at this facility use at least one of these dose optimization techniques: automated exposure control; mA and/or kV adjustment per patient size (includes targeted exams where dose is matched to clinical indication); or iterative reconstruction. COMPARISON: No relevant prior studies available. RADIATION DOSE METRICS: Total DLP (mGy-cm): 1049.49 FINDINGS: Brain: No CT evidence of acute intracranial hemorrhage or acute territorial infarction. No significant mass effect or midline shift. Basal cisterns patent. Cerebral ventricles: Normal in size and configuration. Paranasal sinuses: Mild polypoid ethmoid mucosal thickening. No air-fluid levels. Mastoid air cells: Grossly unremarkable. Bones: Unremarkable. No acute fracture. Soft tissues: Grossly unremarkable. CT/CT head wo con* [id number] IMPRESSION: 1. No CT evidence of acute intracranial pathology. 2. Additional findings, as above.
--- NOTE | 2024-06-10 13:50 | W.ED.HA ---
HPI - Headache General: Chief Complaint: Headache Stated Complaint: headache,blurred vision,sweats Time Seen by Provider: 06/10/24 13:37 Source: patient Mode of arrival: ambulatory Limitations: no limitations History of Present Illness: 29-year-old female states she has had a headache over the last 3 days. She states that it has began gradually and is since to worsen. States she has had headaches in the past but typically does not last this long was had some nausea denies any vomiting she rates the pain 8 out of 10 currently states pains feels like a pressure behind her eyes denies any vision changes denies any neck stiffness or fever Associated symptoms: Deny chest pain, fever(s), nausea, rash or vomiting Related Data Home Medications ?Medication ?Instructions ?Recorded ?Confirmed fluoxetine 20 mg capsule 20 mg PO DAILY 02/28/24 06/10/24 Allergies Allergy/AdvReac Type Severity Reaction Status Date / Time codeine Allergy Intermediate ALGY-Rash Verified 06/10/24 12:17 Review of Systems Const: Denies: fever(s), chills, body aches or change in appetite ENMT: Denies: throat pain or dental pain Card: Denies: chest pain Resp: Denies: dyspnea GI: Denies: abdominal pain, nausea, vomiting or diarrhea Musc: Reports: neck pain; Denies: back pain Skin/Breast: Denies: rash Neuro: Reports: headache(s) PFS ED PFSH: Medical History Former smoker Allergic rhinitis due to allergen Surgical History Hx laparoscopic cholecystectomy 03/07/22 Social History Smoking and tobacco/nicotine status: current every day tobacco/nicotine user Physical Exam Const: COMMON NORMALS: no acute distress, patient oriented x3 and healthy appearing HENMT: COMMON NORMALS: normocephalic and atraumatic HEAD & SCALP: normocephalic and atraumatic Eye: COMMON NORMALS: conjunctivae normal CONJUNCTIVA: Yes conjunctivae normal Neck/C-Spine: COMMON NORMALS: full ROM, supple and no meningeal signs Chest: COMMONS NORMALS: normal inspection of the chest Resp: COMMON NORMALS: normal respiratory effort Cardio: COMMON NORMALS: regular rate, regular rhythm and No murmurs present (Cardio) RATE: regular rate RHYTHM: regular rhythm GI: COMMON NORMALS: Normal to inspection, nondistended, normoactive bowel sounds present, Soft to palpation, non-tender and no masses PALPATION: Yes Soft to palpation Extremity: COMMON NORMALS: normal to inspection and full ROM Neuro: COMMON NORMALS: patient oriented x3, moves all extremities and no focal motor deficits MENINGEAL SIGNS: Yes no meningeal signs Psych: COMMON NORMALS: mental status grossly normal, Normal thought process present and cooperative THOUGHT PROCESS: Normal thought process present Skin: COMMON NORMALS: no rashes or lesions noted and no wounds GENERAL SKIN EXAM: no rashes or lesions noted Course Vital Signs: Vital signs: Vital Signs Temperature 98.0 F 06/10/24 12:12 Pulse Rate 85 06/10/24 14:30 Blood Pressure 118/73 06/10/24 14:30 Pulse Oximetry 96 06/10/24 14:30 Oxygen Delivery Me thod Room Air 06/10/24 14:30 MDM - Headache Medical Decision Making Patient presents here with a headaches likely a tension headache headaches much improved here after meds she is no signs of meningitis or subarachnoid hemorrhage head CT is normal was not a thunderclap headache. She is stable for discharge she is to follow-up with PCP and return if worsening. Medical Records I reviewed the patient's medical records. Lab Data Radiology Impressions Head CT 06/10/24 13:[address]: [address] evidence of acute intracranial pathology. 2. Additional findings, as above. All radiology interpretation(s) finalized by discharge Discharge Plan Discharge Patient Disposition: Home Clinical Impression: Headache Condition: Stable Prescriptions: No Action fluoxetine 20 mg capsule 20 mg PO DAILY Discharge Orders: Discharge ED (Routine); Ordered 06/10/24 Ordered By: Kayden Ibrahim Referrals: Treva Samuel MD [Primary Care Provider] - 4-7 days Discharge Diet: Advance as tolerated Discharge Activity: Resume usual activity Patient Instructions: General Headache (ED) Print Language: Sinhala Coding Level of Care Code ED [employer] Salesperson for Susanne Bergeron
[2024-06-10 14:30] VITALS: BP 118/73; PULSE 85; O2SAT 96
[2024-06-10] MEDS: ketorolac 30 mg/mL INJ 15 MG IVP (14:32)
[2024-06-10] MEDS: metoclopramide 5 mg/mL SDV 2 mL 10 MG IVP (14:34)
[2024-06-10 14:59] VITALS: BP 118/73; PULSE 71; O2SAT 97
== END 2024-06-10 15:00 | disposition home or self-care (01) ==
PROVIDERS: Emergency Provider Emergency Medicine; PCP Family Medicine
DX: R51.9 Headache, unspecified (principal); Z72.0 Tobacco use
CPT/HCPCS: 70450; 96374; 96375; 99285; J1885; J2765

== ENCOUNTER → 2024-10-14 15:05 | Outpatient (BNVA) | payer OTHER, MEDICAID, SELFPAY | PROVIDERS: PCP Nurse Practitioner Family; Visit Provider Nurse Practitioner Women's Health | DX: Z11.3 Encounter for screening for infections with a predominantly sexual mode of transmission (principal); E28.2 Polycystic ovarian syndrome; Z01.419 Encounter for gynecological examination (general) (routine) without abnormal findings | CPT/HCPCS: 80053; 82306; 83036; 83520; 83525; 84402; 84403; 85025; 86592; 86705; 86706; 86709; 86803; 87340; 87491; 87591; 87624; 87661; 87806 ==